=== PATIENT | male | born 1975 | race Caucasian/White ===

== ENCOUNTER 2022-07-08 11:30 | Observation (INO) ==
[~2022-07-08 11:30] MED LIST: SUPRANE ONE; XYLOCAINE 2 % (PLAIN) ONE
[2022-07-08 11:43] VITALS: BMI 30.1
--- NOTE | 2022-07-08 11:50 | DR.ABDMALE ---
HPI Time seen Time Seen by Provider: 07/08/22 11:48 PCP Primary Care Physician: KAMAR YOUSIF Complaint Chief Complaint:: STOMACH PAIN STARTED SUNDAY AND HAS BEEN PERSISTENT SINCE THEN WITH NO RELIEF WITH IBUPROFEN. LAST BM SUNDAY MORNING. "TODAY IS THE WORST PAIN". STARTED ON RIGHT SIDE OF LOWER ABDOMEN AND IS BELOW UMBILICUS THIS MORNING COVID-19 Coronavirus risk:travel/contact w/high risk person: No Has patient experienced Coronavirus symptoms: No Reviewed Nurses Notes Review: Yes Source History provided by:: PATIENT AND HIS . Mode of arrival Mode of Arrival: Ambulatory Timing Onset of Chief Complaint: 07/06/22 Duration Duration: Constant How lon Duration: Days Location Location: Q Severity Severity: Severe Quality Quality: Sharp Context Onset: Suddenly History of: Abdominal surgery (CHOLECYSTECTOMY.) Modifying factors Worsening Factors: Movement Improving Factors: Lying Still Associated signs and symptoms Associated Signs and Symptoms: Nausea PMH PMH Past Medical History: Yes Past Medical History Comment: TAKES MED SINCE GB REMOVED Past Surgical History: Yes Surgical History: Cholecystectomy Family History History of Family Medical Conditions: Yes Family Medical History: Cancer and Coronary Artery Disease Social History Does any household member use tobacco: No Alcohol Use: None Do you use any recreational Drugs:: No Lives With: Spouse and Family Lives Where: Home Travel Risk Coronavirus risk:travel/contact w/high risk person: No Has patient experienced Coronavirus symptoms: No Infectious screening In the last 2 months have you had wt loss of >10#?: NO Have you had fever, night sweats or hemotysis?: No Have you traveled outside the country in the last 6 months?: No Isolation: Standard ROS Review of Systems Constitutional: See HPI, Weakness and Fatigue; negative Fever Eyes: No Symptoms Reported and See HPI ENTM: No Symptoms Reported and See HPI; negative Nose Discharge or Nose Congestion Respiratoy: No Symptoms Reported and See HPI; negative Moist Cough, Short of Breath or Wheezing Cardiovascular: No Symptoms Reported and See HPI; negative Chest Pain Gastrointestinal/Abdominal: See HPI, Abdominal Pain and Nausea; negative Diarrhea or Vomiting Genitourinary: No Symptoms Reported and See HPI; negative Dysuria Neurological: See HPI and Weakness; negative Headache or Dizziness Musculoskeletal: No Symptoms Reported and See HPI; negative Back Pain or Muscle Pain Integumentary: No Symptoms Reported and See HPI; negative Rash or Juandice Hematologic/Lymphatic: No Symptoms Reported and See HPI; negative Easy Bruising Endocrine: No Symptoms Reported and See HPI; negative Increased Thirst or Increased Urine Psychiatric: No Symptoms Reported and See HPI All Other Systems: Reviewed and Negative PE Vital Signs Vital Signs: Temp Pulse Resp BP Pulse Ox O2 Del Method 06/29/15 11:23 134/91 07/08/22 14:13 16 07/08/22 14:00 106 H 97 07/08/22 13:45 102 H 98 07/08/22 13:30 104 H 99 07/08/22 12:55 18 07/08/22 13:43 18 07/08/22 13:15 99 H 98 07/08/22 13:00 101 H 97 07/08/22 12:45 102 H 97 07/08/22 12:30 109 H 96 07/08/22 12:29 110 H 95 07/08/22 12:30 110 H 96 Room Air 07/08/22 12:25 22 07/08/22 11:35 98.9 F 123 H 18 144/88 98 Room Air General Limitations: No Limitations General Appearance: Alert and In No Apparent Distress Head Head Exam: Normal Inspection and Atraumatic Eyes Eye exam: Normal Appearance and PERRL ENT ENT Exam: Normal Exam, Normal Oropharynx, Normal External Ear Exam and TM's Normal Bilaterally Neck Neck Exam: Normal Inspection and Trachea Midline; negative Tenderness Chest Chest Inspection: Normal Inspection and Symmetric Chest Wall Rise; negative Tend erness Respiratory Respiratory Exam: Normal Lung Sounds Bilat; negative Accessory Muscle Use, Chest Wall Tenderness or Respiratory Distress Respiratory Exam: Bilateral: Clear to Auscultation Cardiovascular Cardiovascular Exam: Regular Rate, Normal Rhythm and Normal Heart Sounds; negative Systolic Murmur or Diastolic Murmur Abdominal Exam Abdominal Exam: Normal Bowel Sounds, Soft, Distention, Tenderness and Rebound Rectal Rectal Exam: Deferred Back Back Exam: Normal Inspection; negative (R) CVA Tenderness or (L) CVA Tenderness Extremeties Extremities Exam: Normal Inspection and Normal Capillary Refill Exam: Male: Normal Inspection Neurologic Neurological Exam: Alert and Oriented X3; negative Motor Sensory Deficit Psychiatric Psychiatric Exam: Normal Affect and Normal Mood Skin Skin Exam: Intact MDM Differential Diagnosis Differential Diagnosis: Appendicitis, Bowel Obstruction, Constipation, Di verticular disease, Gastritus/PUD, Inflammatory BD, Pancreatitis, Urinary tract infection and Urolithiasis COURSE Treatment Treatment: SEE ORDERS DONE WHILE PATIENT WAS IN ER. NS Consultation Consultation Comments: DISCUSSED PATIENT WITH DR. REYES. HE WILL TAKE PATIENT TO SURGERY. Education/Counseling Education/Counseling: Patient and Family Educated On: Diagnosis ROR Labs Reviewed Laboratory Results Reviewed?: Yes Result Diagrams: 07/08/22 12:21 07/08/22 12:21 Laboratory: WBC 8.3 X10^3/uL (3.6-10.0) 07/08/22 12:21 RBC 5.13 X10^6/uL (4.7-6.0) 07/08/22 12:21 Hgb 15.2 g/dL (13.5-18.0) 07/08/22 12:21 Hct 43.8 % (42.0-54.0) 07/08/22 12:21 MCV 85.5 fL (80.0-100.0) 07/08/22 12:21 MCH 29.7 pg (27.0-34.0) 07/08/22 12: MCHC 34.7 g/dL (33.0-35.0) 07/08/22 12:21 RDW 13.3 % (11.6-16.5) 07/08/22 12:21 Plt Count 254 X10^3/uL (150.0-450.0) 07/08/22 12:21 MPV 7.3 fL (7.4-11.0) L 07/08/22 12:21 Neut % (Auto) 80.0 % (42.0-75.0) H 07/08/22 12: Lymph % (Auto) 12.6 % (21.0-51.0) L 07/08/22 12:21 [place] % (Auto) 7.0 % (0.0-13.0) 07/08/22 12:21 Eos % (Auto) 0.1 % (0.9-2.9) L 07/08/22 12:21 Baso % (Auto) 0.3 % (0.2-1.0) 07/08/22 12:21 Neut # (Auto) 6.6 x10^3/uL (2.2-4.8) H 07/08/22 12:21 Lymph # (Auto) 1.0 X10^3/uL (1.3-2.9) L 07/08/22 12:21 [place] # (Auto) 0.6 x10^3/uL (0.3-0.8) 07/08/22 12:21 Eos # (Auto) 0.0 x10^3/uL (0.0-0.2) 07/08/22 12:21 Baso # (Auto) 0.0 X10^3/uL (0.0-0.1) 07/08/22 12:21 Absolute Nucleated RBC 0.0 /100WBC 07/08/22 12:21 Sodium 136 mmol/L (136-145) 07/08/22 12:21 Corrected Sodium TNP 07/08/22 12:21 Potassium 4.1 mmol/L (3.5-5.1) 07/08/22 12:21 Chloride 101 mmol/L (98-107) 07/08/22 12:21 Carbon Dioxide 28.5 mmol/L (21-32) 07/08/22 12:21 BUN 11 mg/dL (7-18) 07/08/22 12:21 Creatinine 1.15 mg/dL (0.70-1.30) 07/08/22 12:21 Est GFR (MDRD) Af Amer > 60 (>60) 07/08/22 12:21 Est GFR (MDRD) Non-Af > 60 (>60) 07/08/22 12:21 Glucose 92 mg/dL (65-99) 07/08/22 12:21 Calcium 8.5 mg/dL (8.5-10.1) 07/08/22 12:21 Corrected Calcium TNP 07/08/22 12:21 Total Bilirubin 0.50 mg/dL (0.2-1.0) 07/08/22 12:21 AST 21 Units/L (15-37) 07/08/22 12:21 ALT 43 Units/L (12-78) 07/08/22 12:21 Alkaline Phosphatase 113 Units/L (46-116) 07/08/22 12:21 Total Protein 7.7 g/dL (6.4-8.2) 07/08/22 12:21 Albumin 4.1 g/dL (3.4-5.0) 07/08/22 12:21 Globulin 3.6 g/dL (2.5-4.5) 07/08/22 12:21 Albumin/Globulin Ratio 1.1 Ratio (1.1-2.1) 07/08/22 12:21 Amylase 54 Units/L (25-115) 07/08/22 12:21 Lipase 274 Units/L (73-393) 07/08/22 12:21 Specimen Type Clean catch urine 07/08/22 15:22 Urine Color Yellow (YELLOW) 07/08/22 15:22 Urine Appearance Clear (CLEAR) 07/08/22 15:22 Urine pH 5.0 (5.0 - 8.0) 07/08/22 15:22 Ur Specific [place] 1.015 (1.000-1.030) 07/08/22 15:22 Urine Protein 2+ (NEGATIVE) 07/08/22 15:22 Urine Glucose (UA) 1+ (NEGATIVE) 07/08/22 15:22 Urine Ketones 1+ (NEGATIVE) 07/08/22 15:22 Urine Blood Negative (NEGATIVE) 07/08/22 15:22 Urine Nitrite Negative (NEGATIVE) 07/08/22 15:22 Urine Bilirubin Negative (NEGATIVE) 07/08/22 15:22 Urine Urobilinogen Normal (NORMAL) 07/08/22 15:22 Ur Leukocyte Esterase Negative (NEGATIVE) 07/08/22 15:22 Urine RBC 0-2 /HPF (0-3) 07/08/22 15:22 Urine WBC 0-2 /HPF (0-5) 07/08/22 15:22 Ur Squamous Epith Cells Negative /HPF (NEGATIVE) 07/08/22 15:22 Urine Bacteria Negative /HPF (NEGATIVE) 07/08/22 15:22 Ur Culture Indicated? No/not indicated 07/08/22 15:22 XRAY XRAY Interpreted by: Radiologist (REPORT NOTED.) EKG Rate: 111 [place]: Normal Rhythm: ST Block: None Hypertrophy: None ST: Normal Opioid Opioid Risk Tool Age (Noble box if 16-45): No History of Preadolescent Sexual Abuse: No Total: 0 Total Score Risk Category: Low Risk Copyright: Roland CORTEZ predicting aberrant behaviors Discharge Plan Diagnosis Discharge Problem: Acute appendicitis, Abdominal pain Discharge Plan Patient Disposition: 01 HOME, SELF-CARE Condition: Stable Prescriptions: No Action cholestyramine (with sugar) [Questran] 4 GM/DOSE powder 4 gm PO DAILY Health Concerns: Post Hospitalization: new medications and changes needed to prevent readmission or further decline. Pt educated and given instructions on all concerns. Plan of Treatment: Continue with present treatment and follow up plan. Pt is to keep follow up appointment as instructed and take medications as ordered. Follow ups/Referrals Follow ups/Referrals: AGGIE YOUSIF [Primary Care Provider] - 3 days Instructions Stand Alone Forms: Precautions for COVID19, [facility], Patient Portal, Social Distancing
[2022-07-08] MEDS ORDERED: ZOFRAN INJ 4 MG VIAL IVP ONE (12:10)
[2022-07-08] MEDS ORDERED: DEMEROL INJ IVP ONE ×2 (12:10→13:40)
[2022-07-08] MEDS ORDERED: ZOFRAN INJ 4 MG VIAL ONE ×2 (12:14→15:43)
[2022-07-08] MEDS ORDERED: DEMEROL INJ ONE ×2 (12:14→13:37)
[2022-07-08 12:29] LABS: BASOPHILS % (AUTO) 0.3 % (0.2-1.0); EOSINOPHILS % (AUTO) 0.1 % (0.9-2.9); HEMATOCRIT 43.8 % (42.0-54.0); HEMOGLOBIN 15.2 g/dL (13.5-18.0); LYMPHOCYTES % (AUTO) 12.6 % (21.0-51.0); MEAN CORPUSCULAR HEMOGLOBIN 29.7 pg (27.0-34.0); MEAN CORPUSCULAR HGB CONC 34.7 g/dL (33.0-35.0); MEAN CORPUSCULAR VOLUME 85.5 fL (80.0-100.0); MEAN PLATELET VOLUME 7.3 fL (7.4-11.0); MONOCYTES # (AUTO) 0.6 x10^3/uL (0.3-0.8); NEUTROPHILS # (AUTO) 6.6 x10^3/uL (2.2-4.8); RED BLOOD COUNT 5.13 X10^6/uL (4.7-6.0); RED CELL DISTRIBUTION WIDTH 13.3 % (11.6-16.5); WHITE BLOOD COUNT 8.3 X10^3/uL (3.6-10.0)
[2022-07-08 12:41] LABS: ALANINE AMINOTRANSFERASE 43 Units/L (12-78); ALBUMIN 4.1 g/dL (3.4-5.0); ALKALINE PHOSPHATASE 113 Units/L (46-116); AMYLASE 54 Units/L (25-115); ASPARTATE AMINO TRANSFERASE 21 Units/L (15-37); BLOOD UREA NITROGEN 11 mg/dL (7-18); CALCIUM 8.5 mg/dL (8.5-10.1); CARBON DIOXIDE 28.5 mmol/L (21-32); CHLORIDE 101 mmol/L (98-107); CREATININE 1.15 mg/dL (0.70-1.30); LIPASE 274 Units/L (73-393); SODIUM 136 mmol/L (136-145); TOTAL PROTEIN 7.7 g/dL (6.4-8.2); eGFR NON BLACK RACES > 60 (>60)
[2022-07-08] MEDS ORDERED: NS 100 ML IV 100 ML ONE ×2 (14:00→16:00)
--- NOTE | 2022-07-08 14:42 | CT ---
CT abdomen and pelvis with contrastIndication: Right lower quadrant pain. History of cholecystectomyCOMPARISONAugust 2020 CTTECHNIQUEHelical images through the abdomen and pelvis after IV and oral contrast per protocol. Coronal and sagittal reformats providedFINDINGSLimited images through the lower chest demonstrate no acute abnormality.Review of bone windows demonstrate no destructive lesionAbdomen: The liver is low in attenuation. The gallbladder is absent. The spleen is normal. Adrenal glands are normal. Hypodensity at the body of the pancreas on axial image 28 measures 1.4 cm, essentially unchanged from the prior, seen on axial image 25. IPMN possible.Right upper pole renal stone noted, unchanged from the prior. This measures 5 x 7 mm on axial image 40. Interpolar small cortical left renal cyst and upper pole exophytic left renal cyst noted.The stomach and small bowel are normal.There is no acute colonic abnormality. The appendix is dilated with surrounding stranding, and is fluid-filled on axial image 66 measuring 10 mm in diameter. Coronal image twenty-eight through 31 shows the dilated fluid-filled appendix with surrounding stranding.Pelvis: Urinary bladder and rectum are normal. Prostate gland is normalIMPRESSION1. Acute appendicitis. Surgical consultation recommended. Surrounding stranding is present without abscess2. Hypodense lesion at the body of the pancreas near the junction with the tail is unchanged from the prior. However, follow-up nonemergent MR imaging is recommended to document characteristics. IPMN possible. Other cystic neoplasm not excluded3. Probable hepatic steatosis, nonobstructing right upper pole renal stone and other findings as above.Electronically signed by: YUNG LEDESMA (Jul 08, 2022 14:41:18)
--- NOTE | 2022-07-08 15:13 | RAD ---
HISTORYpre op Relevant Clinical InformationSTUDYCHEST, 1 VIEWCOMPARISONFINDINGSThe trachea is midline. The cardiac silhouette is unremarkable. The lungs are clear without focal infiltrate or effusion. The bony thorax is unremarkable.IMPRESSIONNo acute cardiopulmonary findings .Electronically signed by: Ray Fan (Jul 08, 2022 15:11:52)
[2022-07-08 15:30] LABS: BILIRUBIN,URINE NEGATIVE (NEGATIVE); BLOOD/HEMOGLOBIN,URINE NEGATIVE (NEGATIVE); GLUCOSE, URINE 1+ (NEGATIVE); KETONES,URINE 1+ (NEGATIVE); LEUKOCYTE ESTERASE ,URINE NEGATIVE (NEGATIVE); NITRITES,URINE NEGATIVE (NEGATIVE); PROTEIN,URINE 2+ (NEGATIVE); UROBILINOGEN,URINE NORMAL (NORMAL)
[2022-07-08] MEDS ORDERED: MARCAINE 0.25% INJ ONE (15:36)
[2022-07-08] MEDS ORDERED: VERSED ONE (15:42)
[2022-07-08] MEDS ORDERED: OFIRMEV IV 1000 MG VIAL 1,000 MG/100 ML VIAL IV ONE (15:43)
[2022-07-08] MEDS ORDERED: BRIDION ONE (15:43)
[2022-07-08] MEDS ORDERED: FENTANYL VIAL INJ 100 mcg ONE (15:43)
[2022-07-08] MEDS ORDERED: XYLOCAINE 2 % (PLAIN) ONE (15:43)
[2022-07-08] MEDS ORDERED: PEPCID 20 MG VIAL ONE (15:43)
[2022-07-08] MEDS ORDERED: DIPRIVAN VIAL 20 ML ONE (15:43)
--- NOTE | 2022-07-08 15:47 | DR.H&P ---
H&P History & Physical for Day of: H&P Date: 07/08/22 Chief Complaint Chief Complaint: Abdominal pain now primarily right lower quadrant Allergies Allergies Allergy/AdvReac Type Severity Reaction Status Date / Time No Known Drug Allergies Allergy Verified 07/08/22 12:12 History of Present Illness History of Present Illness: 46 year old male with onset of periumbilical pain last night now relocated to the right lower quadrant and noted to be severe. Evaluated in the emergency room and CT scan consistent with all the acute appendicitis . Past Surgical History Surgical History: Cholecystectomy Family History Family Medical History: Cancer and Coronary Artery Disease Social History Does patient currently use any type of tobacco product: No Does any household member use tobacco: No Alcohol Use: None Medications Home Medications: No Known Drug Allergies Allergy (Verified 07/08/22 12:12) Labs Result Diagrams: 07/08/22 12:21 07/08/22 12:21 Labs: Laboratory WBC 8.3 X10^3/uL (3.6-10.0) 07/08/22 12:21 RBC 5.13 X10^6/uL (4.7-6.0) 07/08/22 12:21 Hgb 15.2 g/dL (13.5-18.0) 07/08/22 12:21 Hct 43.8 % (42.0-54.0) 07/08/22 12:21 MCV 85.5 fL (80.0-100.0) 07/08/22 12:21 MCH 29.7 pg (27.0-34.0) 07/08/22 12:21 MCHC 34.7 g/dL (33.0-35.0) 07/08/22 12:21 RDW 13.3 % (11.6-16.5) 07/08/22 12:21 Plt Count 254 X10^3/uL (150.0-450.0) 07/08/22 12:21 MPV 7.3 fL (7.4-11.0) L 07/08/22 12:21 Neut % (Auto) 80.0 % (42.0-75.0) H 07/08/22 12:21 Lymph % (Auto) 12.6 % (21.0-51.0) L 07/08/22 12:21 [place] % (Auto) 7.0 % (0.0-13.0) 07/08/22 12:21 Eos % (Auto) 0.1 % (0.9-2.9) L 07/08/22 12:21 Baso % (Auto) 0.3 % (0.2-1.0) 07/08/22 12:21 Neut # (Auto) 6.6 x10^3/uL (2.2-4.8) H 07/08/22 12:21 Lymph # (Auto) 1.0 X10^3/uL (1.3-2.9) L 07/08/22 12:21 [place] # (Auto) 0.6 x10^3/uL (0.3-0.8) 07/08/22 12:21 Eos # (Auto) 0.0 x10^3/uL (0.0-0.2) 07/08/22 12:21 Baso # (Auto) 0.0 X10^3/uL (0.0-0.1) 07/08/22 12:21 Absolute Nucleated RBC 0.0 /100WBC 07/08/22 12:21 Sodium 136 mmol/L (136-145) 07/08/22 12:21 Corrected Sodium TNP 07/08/22 12:21 Potassium 4.1 mmol/L (3.5-5.1) 07/08/22 12:21 Chloride 101 mmol/L (98-107) 07/08/22 12:21 Carbon Dioxide 28.5 mmol/L (21-32) 07/08/22 12:21 BUN 11 mg/dL (7-18) 07/08/22 12:21 Creatinine 1.15 mg/dL (0.70-1.30) 07/08/22 12:21 Est GFR (MDRD) Af Amer > 60 (>60) 07/08/22 12:21 Est GFR (MDRD) Non-Af > 60 (>60) 07/08/22 12:21 Glucose 92 mg/dL (65-99) 07/08/22 12:21 Calcium 8.5 mg/dL (8.5-10.1) 07/08/22 12:21 Corrected Calcium TNP 07/08/22 12:21 Total Bilirubin 0.50 mg/dL (0.2-1.0) 07/08/22 12:21 AST 21 Units/L (15-37) 07/08/22 12:21 ALT 43 Units/L (12-78) 07/08/22 12:21 Alkaline Phosphatase 113 Units/L (46-116) 07/08/22 12:21 Total Protein 7.7 g/dL (6.4-8.2) 07/08/22 12:21 Albumin 4.1 g/dL (3.4-5.0) 07/08/22 12:21 Globulin 3.6 g/dL (2.5-4.5) 07/08/22 12:21 Albumin/Globulin Ratio 1.1 Ratio (1.1-2.1) 07/08/22 12:21 Amylase 54 Units/L (25-115) 07/08/22 12:21 Lipase 274 Units/L (73-393) 07/08/22 12:21 Review of Systems Constitutional: See HPI Eyes: No Symptoms Reported ENT: No Symptoms Reported Respiratory: No Symptoms Reported Cardiovascular: No Symptoms Reported Gastrointestinal: See HPI Genitourinary: No Symptoms Reported Musculoskeletal: No Symptoms Reported Skin: No Symptoms Reported Neurological: No Symptoms Reported Physical Exam Vital Signs: Temperature 98.9 F Pulse Rate 106 Respiratory Rate 16 Blood Pressure 144/88 O2 Sat by Pulse Oximetry 97 Oriented: Normal, Time, Person and Place Eyes: Normal Ear: Normal Nose: Normal Throat: Normal Respiratory: Clear Throughout Cardiovascular: Normal : Normal Auscultation: Bowel Sounds: Normal Palpation: Normal Tenderness: RLQ ( with rebound and Rovsing's sign) Skin: Normal Musculoskeletal: Normal Psychiatric: Normal Mood Description: Calm Affect: Normal Speech Pattern: Clear Assessment/Plan (1) Acute appendicitis: Status: Acute Plan: Plan laparoscopic appendectomy. Risk and benefits including the possibility of having to convert to an open operation and the possibility of leak from the staple line discussed with the patient. He understands and agrees to proceed. These risks are small.
[2022-07-08 15:53] LABS: APPEARANCE,URINE CLEAR (CLEAR); BACTERIA,URINE NEGATIVE /HPF (NEGATIVE); COLOR,URINE YELLOW (YELLOW); RBC,URINE 0-2 /HPF (0-3); SQUAMOUS EPITHELIAL CELL,UR NEGATIVE /HPF (NEGATIVE)
[2022-07-08] MEDS ORDERED: LR 1,000 ML IV 1,000 ML IV ONE (15:58)
[2022-07-08] MEDS ORDERED: ANCEF VIAL 1 GRAM ONE (16:00)
[2022-07-08] MEDS ORDERED: BARHEMSYS INJ IVP PRN (16:09)
[2022-07-08] MEDS ORDERED: ZOFRAN INJ 4 MG VIAL IVP PRN (16:09)
[2022-07-08] MEDS ORDERED: REGLAN INJ 10 MG VIAL IVP PRN (16:09)
[2022-07-08] MEDS ORDERED: DILAUDID INJ IVP PRN (16:09)
[2022-07-08] MEDS ORDERED: PHENERGAN INJ 25 MG IM PRN (16:09)
[2022-07-08] MEDS ORDERED: BENADRYL INJ 50 MG VIAL IVP PRN (16:09)
[2022-07-08] MEDS ORDERED: NS 1,000 ML IV 0 ML ONE (16:33)
[2022-07-08] MEDS ORDERED: MARCAINE/EPINEPHRINE ONE (16:50)
--- NOTE | 2022-07-08 16:58 | OR.IMMED ---
IMMEDIATE POST-OP NOTE Immediate Post-Op Note Pre-Op Diagnosis: Acute appendicitis Post-Op Diagnosis: same Procedure: laparoscopic appendectomy Description of Procedure: See operative note Surgeon/Inside Sales Advisor: Yony Specimens Removed: appendix Estimated Blood Loss: minimal Drains: NONE Complications: none Progress Notes: To floor , D/C home when tolerating a regular diet and pain controlled with po pin medications. Final Diagnosis: acute appendicitis
[2022-07-08] MEDS ORDERED: PERCOCET TAB 5/325 MG PO PRN (17:00)
[2022-07-08] MEDS: LR 1,000 ML IV 1,000 ML IV SCH (18:26)
--- NOTE | 2022-07-08 19:09 | DR.OPNOTE ---
OP NOTE Pre-Op Diagnosis: Acute appendicitis Post-Op Diagnosis: acute appendicitis Procedure Date Date Of Procedure: 07/08/22 Procedure: PROCEDURE : laparoscopic appendectomy NARRATIVE: The patient was taken to the operating suite and placed in the turner pine position and general endotracheal anesthesia induced. The entire abdomen was prepped and draped in sterile fashion. Time out for the procedure obtained . 5 mm incision was made lateral to the left rectus sheath on line with the umbilicus and a 5 mm Optical trocar used to enter the abdomen . The abdomen was insufflated to 15 mm of mercury with carbon dioxide and under direct vision a 5 mm trocar placed above the pubic tubercles in the the midline and a 12 mm trocar placed in the left lower quadrant. Appendix was easily identified and appeared to be acutely inflamed with no obvious perforation or abscess. The mesentery of the appendix divided with two fires of the VELASQUEZ stapler and the base of the appendix divided with a separate fire of the VELASQUEZ stapler. Appendix placed in a specimen bag and brought out through the left lower quadrant trocar site. The area was irrigated and suctioned free. All trocars removed. All incisions closed with interrupted 3-0 subcutaneous Vicryl sutures and the skin closed with steri- stripes Patient was extubated and taken to the recovery room in good condition. Type of Anesthesia: General Anesthetic w/ETT Findings: as above Specimen/Pathology: appendix Type of Fluids Used:: Lactated Ringers EBL: minimal Drains/Tubes Placed: None Complications:: none Needle/Sponge Count:: correct Disposition/Condition: Pt. tolerated procedure without difficulty. Extubated in the OR and taken to PACU in stable condition.
[2022-07-08] MEDS: CIPRO TAB 500 MG PO SCH (21:56)
[2022-07-09] MEDS: LR 1,000 ML IV 1,000 ML IV SCH (05:26)
[2022-07-09] MEDS: CIPRO TAB 500 MG PO SCH (08:31)
[2022-07-09 12:53] VITALS: BP 112/73
--- NOTE | 2022-07-09 15:19 | W.DIS.FURT ---
Summary of Discharge Discharge Summary of Date Date of Exam: 07/09/22 Admission Date Date of Admission: 07/08/22 Admission Diagnosis Patient Problems (Updated 07/08/22 @ 16:20 by SILAS BISWAS) Acute appendicitis (Acute) K35.80 Abdominal pain (Acute) R10.9 Hospital Course: 46 yo male presented with classic history and physical exam for acute appendicitis , confirmed by CT scan. That day he underwent uncomplicated laparoscopic appendectomy and has done well post-operatively. He will be discharged today and follow up with me in one week. He will be discharged on Cipro 500 mg po BID and Percocet, 5 mg po q 6 hr PRN pain Vital Signs: Vital Signs (72 hours) 07/08/22 11:35 07/08/22 12:25 07/08/22 12:30 Temperature 98.9 F Pulse Rate 123 H 110 H Pulse Rate [Right Radial] Respiratory Rate 18 22 Blood Pressure 144/88 Blood Pressure [Right Arm] O2 Sat by Pulse Oximetry 98 96 Oxygen Delivery Method Room Air Room Air 07/08/22 12:29 07/08/22 12:30 07/08/22 12:45 Temperature Pulse Rate 110 H 109 H 102 H Pulse Rate [Right Radial] Respiratory Rate Blood Pressure Blood Pressure [Right Arm] O2 Sat by Pulse Oximetry 95 96 97 Oxygen Delivery Method 07/08/22 13:00 07/08/22 13:15 07/08/22 13:43 Temperature Pulse Rate 101 H 99 H Pulse Rate [Right Radial] Respiratory Rate 18 Blood Pressure Blood Pressure [Right Arm] O2 Sat by Pulse Oximetry 97 98 Oxygen Delivery Method 07/08/22 12:55 07/08/22 13:30 07/08/22 13:45 Temperature Pulse Rate 104 H 102 H Pulse Rate [Right Radial] Respiratory Rate 18 Blood Pressure Blood Pressure [Right Arm] O2 Sat by Pulse Oximetry 99 98 Oxygen Delivery Method 07/08/22 14:00 07/08/22 14:13 07/08/22 16:05 Temperature 99.4 F Pulse Rate 106 H 110 H Pulse Rate [Right Radial] Respiratory Rate 16 20 Blood Pressure 167/85 Blood Pressure [Right Arm] O2 Sat by Pulse Oximetry 97 98 Oxygen Delivery Method Room Air 07/08/22 16:07 07/08/22 17:00 07/08/22 17:05 Temperature 97.1 F L Pulse Rate 110 H Pulse Rate [Right Radial] 107 H 105 H Respiratory Rate 18 17 Blood Pressure Blood Pressure [Right Arm] 165/80 156/80 O2 Sat by Pulse Oximetry 100 100 Oxygen Delivery Method 07/08/22 17:10 07/08/22 17:15 07/08/22 17:20 Temperature Pulse Rate Pulse Rate [Right Radial] 107 H 104 H 103 H Respiratory Rate 17 16 17 Blood Pressure Blood Pressure [Right Arm] 161/86 158/86 152/82 O2 Sat by Pulse Oximetry 100 100 100 Oxygen Delivery Method 07/08/22 17:24 07/08/22 15:25 07/08/22 17:25 Temperature Pulse Rate Pulse Rate [Right Radial] 104 H 103 H Respiratory Rate 17 17 Blood Pressure Blood Pressure [Right Arm] 153/81 152/80 O2 Sat by Pulse Oximetry 100 100 Oxygen Delivery Method Room Air 07/08/22 17:30 07/08/22 17:35 07/08/22 17:45 Temperature 98.9 F Pulse Rate Pulse Rate [Right Radial] 103 H 99 H Respiratory Rate 18 18 Blood Pressure Blood Pressure [Right Arm] 154/80 168/89 O2 Sat by Pulse Oximetry 99 95 Oxygen Delivery Method Room Air Room Air 07/08/22 18:00 07/08/22 18:15 07/08/22 18:30 Temperature 99.0 F 99.0 F 99.0 F Pulse Rate Pulse Rate [Right Radial] 100 H 101 H 100 H Respiratory Rate 18 18 18 Blood Pressure Blood Pressure [Right Arm] 146/72 140/76 137/76 O2 Sat by Pulse Oximetry 96 96 100 Oxygen Delivery Method Room Air Room Air 07/08/22 18:45 07/08/22 19:00 07/08/22 19:45 Temperature 98.3 F 98.3 F Pulse Rate Pulse Rate [Right Radial] 97 H 92 H Respiratory Rate 19 20 Blood Pressure Blood Pressure [Right Arm] 135/75 125/75 O2 Sat by Pulse Oximetry 96 97 Oxygen Delivery Method Room Air Room Air Room Air 07/08/22 20:45 07/08/22 21:45 07/08/22 22:45 Temperature 98.4 F 98.0 F 98.4 F Pulse Rate Pulse Rate [Right Radial] 96 H 93 H 92 H Respiratory Rate 20 20 20 Blood Pressure Blood Pressure [Right Arm] 117/69 130/71 119/64 O2 Sat by Pulse Oximetry 96 96 96 Oxygen Delivery Method Room Air Room Air Room Air 07/09/22 00:00 07/09/22 03:56 07/09/22 07:56 Temperature 98.2 F 98.6 F 97.6 F Pulse Rate Pulse Rate [Right Radial] 90 94 H 86 Respiratory Rate 20 20 18 Blood Pressure Blood Pressure [Right Arm] 120/65 112/60 116/62 O2 Sat by Pulse Oximetry 96 94 L 95 Oxygen Delivery Method Room Air Room Air Room Air 07/09/22 07:00 07/09/22 12:00 Temperature 99.1 F Pulse Rate Pulse Rate [Right Radial] 101 H Respiratory Rate 18 Blood Pressure Blood Pressure [Right Arm] 112/73 O2 Sat by Pulse Oximetry 97 Oxygen Delivery Method Room Air Room Air Labs: Laboratory Last Values WBC 8.3 X10^3/uL (3.6-10.0) 07/08/22 12:21 RBC 5.13 X10^6/uL (4.7-6.0) 07/08/22 12:21 Hgb 15.2 g/dL (13.5-18.0) 07/08/22 12:21 Hct 43.8 % (42.0-54.0) 07/08/22 12:21 MCV 85.5 fL (80.0-100.0) 07/08/22 12:21 MCH 29.7 pg (27.0-34.0) 07/08/22 12:21 MCHC 34.7 g/dL (33.0-35.0) 07/08/22 12:21 RDW 13.3 % (11.6-16.5) 07/08/22 12:21 Plt Count 254 X10^3/uL (150.0-450.0) 07/08/22 12:21 MPV 7.3 fL (7.4-11.0) L 07/08/22 12:21 Neut % (Auto) 80.0 % (42.0-75.0) H 07/08/22 12:21 Lymph % (Auto) 12.6 % (21.0-51.0) L 07/08/22 12:21 [place] % (Auto) 7.0 % (0.0-13.0) 07/08/22 12:21 Eos % (Auto) 0.1 % (0.9-2.9) L 07/08/22 12:21 Baso % (Auto) 0.3 % (0.2-1.0) 07/08/22 12:21 Neut # (Auto) 6.6 x10^3/uL (2.2-4.8) H 07/08/22 12:21 Lymph # (Auto) 1.0 X10^3/uL (1.3-2.9) L 07/08/22 12:21 [place] # (Auto) 0.6 x10^3/uL (0.3-0.8) 07/08/22 12:21 Eos # (Auto) 0.0 x10^3/uL (0.0-0.2) 07/08/22 12:21 Baso # (Auto) 0.0 X10^3/uL (0.0-0.1) 07/08/22 12:21 Absolute Nucleated RBC 0.0 /100WBC 07/08/22 12:21 Sodium 136 mmol/L (136-145) 07/08/22 12:21 Corrected Sodium TNP 07/08/22 12:21 Potassium 4.1 mmol/L (3.5-5.1) 07/08/22 12:21 Chloride 101 mmol/L (98-107) 07/08/22 12:21 Carbon Dioxide 28.5 mmol/L (21-32) 07/08/22 12:21 BUN 11 mg/dL (7-18) 07/08/22 12:21 Creatinine 1.15 mg/dL (0.70-1.30) 07/08/22 12:21 Est GFR (MDRD) Af Amer > 60 (>60) 07/08/22 12:21 Est GFR (MDRD) Non-Af > 60 (>60) 07/08/22 12:21 Glucose 92 mg/dL (65-99) 07/08/22 12:21 Calcium 8.5 mg/dL (8.5-10.1) 07/08/22 12:21 Corrected Calcium TNP 07/08/22 12:21 Total Bilirubin 0.50 mg/dL (0.2-1.0) 07/08/22 12:21 AST 21 Units/L (15-37) 07/08/22 12:21 ALT 43 Units/L (12-78) 07/08/22 12:21 Alkaline Phosphatase 113 Units/L (46-116) 07/08/22 12:21 Total Protein 7.7 g/dL (6.4-8.2) 07/08/22 12:21 Albumin 4.1 g/dL (3.4-5.0) 07/08/22 12:21 Globulin 3.6 g/dL (2.5-4.5) 07/08/22 12:21 Albumin/Globulin Ratio 1.1 Ratio (1.1-2.1) 07/08/22 12:21 Amylase 54 Units/L (25-115) 07/08/22 12:21 Lipase 274 Units/L (73-393) 07/08/22 12:21 Specimen Type Clean catch urine 07/08/22 15:22 Urine Color Yellow (YELLOW) 07/08/22 15:22 Urine Appearance Clear (CLEAR) 07/08/22 15:22 Urine pH 5.0 (5.0 - 8.0) 07/08/22 15:22 Ur Specific [place] 1.015 (1.000-1.030) 07/08/22 15:22 Urine Protein 2+ (NEGATIVE) 07/08/22 15:22 Urine Glucose (UA) 1+ (NEGATIVE) 07/08/22 15:22 Urine Ketones 1+ (NEGATIVE) 07/08/22 15:22 Urine Blood Negative (NEGATIVE) 07/08/22 15:22 Urine Nitrite Negative (NEGATIVE) 07/08/22 15:22 Urine Bilirubin Negative (NEGATIVE) 07/08/22 15:22 Urine Urobilinogen Normal (NORMAL) 07/08/22 15:22 Ur Leukocyte Esterase Negative (NEGATIVE) 07/08/22 15:22 Urine RBC 0-2 /HPF (0-3) 07/08/22 15:22 Urine WBC 0-2 /HPF (0-5) 07/08/22 15:22 Ur Squamous Epith Cells Negative /HPF (NEGATIVE) 07/08/22 15:22 Urine Bacteria Negative /HPF (NEGATIVE) 07/08/22 15:22 Ur Culture Indicated? No/not indicated 07/08/22 15:22 Tissue Pathology To follow 07/08/22 16:50 Reason For Visit: S/P EMERGENCY APPENDECTOMY Discharge Date Discharge Date: 07/09/22 Discharge Diagnosis All Active Problems (Updated 07/08/22 @ 16:20 by SILAS BISWAS) Acute appendicitis (Acute) Abdominal pain (Acute) Acute appendicitis (Acute) Chest wall pain (Acute) Plan of Treatment: Continue with present treatment and follow up plan. Pt is to keep follow up appointment as instructed and take medications as ordered. Discharge Medications Discharge Medications: Cipro 500 mg po BId Percocet 5mg, 1 po q 6 hr PRN pain No Known Drug Allergies Allergy (Verified 07/08/22 12:12) Discharge Disposition Assessment: see hospital course Discharge Plan Discharge Plan Hospital Course: 46 yo male presented with classic history and physical exam for acute appendicitis , confirmed by CT scan. That day he underwent uncomplicated laparoscopic appendectomy and has done well post-operatively. He will be discharged today and follow up with me in one week. He will be discharged on Cipro 500 mg po BID and Percocet, 5 mg po q 6 hr PRN pain Patient Disposition: 01 HOME, SELF-CARE Condition: Stable Health Concerns: Post Hospitalization: new medications and changes needed to prevent readmission or further decline. Pt educated and given instructions on all concerns. Plan of Treatment: Continue with present treatment and follow up plan. Pt is to keep follow up appointment as instructed and take medications as ordered. Assessment: see hospital course Prescriptions: No Action cholestyramine (with sugar) [Questran] 4 GM/DOSE powder 4 gm PO DAILY Orders to Discharge Patient Discharge Orders: Discharge (Routine); Ordered 07/09/22 Ordered By: Dinesh Bhakta Follow ups/Referrals Follow ups/Referrals: AGGIE YOUSIF [Primary Care Provider] - 3 days Instructions Instructions: Laparoscopic Appendectomy, Adult, Care After, [id number] Stand Alone Forms: Excuse From Work or School, Precautions for COVID19, [facility], Patient Portal, Social Distancing
== END 2022-07-09 14:20 | disposition home or self-care (01) ==
LOC: MED/SURG 11:34 → ER 11:34 → OUTPT REF 16:58 → MED/SURG 16:58 → OUTPT REF 18:06
PROVIDERS: ADMIT Surgery; ATTEND Surgery
PROC: APPYLAP (ICD-10-PCS; 2022-07-08 16:15)